=== PATIENT | female | born 1995 | race Two or more races ===

== ENCOUNTER 2025-03-27 08:19 | Outpatient (CLI) | payer OTHER | END 2025-03-27 08:20 | disposition home or self-care (01) | LOC: CSHULT 08:19 | PROVIDERS: ATTEND Family Medicine | DX: O32.9XX0 Maternal care for malpresentation of fetus, unspecified, not applicable or unspecified (principal); Z3A.23 23 weeks gestation of pregnancy | CPT/HCPCS: 76805 ==